=== PATIENT | male | born 1960 | race Caucasian/White ===

== ENCOUNTER 2017-10-10 10:37 | Outpatient (REF) | payer BC, SELFPAY ==
[2017-10-10 12:39] LABS: ALT 51 U/L (12-78); AST 26 U/L (15-37); Albumin 3.4 g/dL (3.4-5.0); Alkaline Phosphatase 77 U/L (46-116); Anion Gap 8.9 mmol/L (3-11); BUN 14 mg/dL (7-18); Bilirubin, Total 0.6 mg/dL (0.2-1.0); CO2 27.1 mmol/L (21.0-32.0); Calcium 8.8 mg/dL (8.5-10.1); Chloride 102 mmol/L (98-107); Glucose 116 mg/dL (70-100); Potassium 3.8 mmol/L (3.5-5.1); Sodium 138 mmol/L (136-145); Total Protein 7.3 g/dL (6.4-8.2)
[2017-10-10 12:48] LABS: Abs Immature Grans 0.04 k/cumm (0.0-0.09); Absolute Basophil Count 0.02 k/cumm (0.0-0.2); Absolute Eosinophil Count 0.09 k/cumm (0.0-0.7); Absolute Lymphocyte Count 0.87 k/cumm (1.2-3.4); Absolute Monocyte Count 0.48 k/cumm (0.11-0.7); Absolute Neutrophil Count 7.22 k/cumm (1.2-6.7); Basophils % 0.2; HCT 41.2 % (40.0-50.0); HGB 13.5 g/dL (13.5-17.5); Immature Grans % 0.5; Mean Corp. HGB Concentration 32.8 g/dL (32.0-36.0); Mean Corpuscular Hemoglobin 29.6 pg (27.0-33.0); Mean Corpuscular Volume 90.4 fL (80-95); Mean Platelet Volume 9.5 fL (8.0-11.0); Monocytes % 5.5; Neutrophils % 82.8; Platelet Count 321 x1000/uL (130-400); RBC 4.56 m/cumm (4.50-6.00); RBC Distribution Width 13.6 % (11.8-14.1); White Blood Cell Count 8.72 k/cumm (4.4-10.8)
[2017-10-11 10:40] LABS: PSA, Screening 1.3 ng/ml (0-3.5)
[2017-10-11 12:35] LABS: Lyme Ab w Rflx to Lyme Confirm Positive
[2017-10-11 21:46] LABS: Anaplasma phagocytophilum Negative (Negative); B. miyamotoi PCR Negative (Negative); Babesia divergens/MO-1 Negative (Negative); Babesia duncani Negative (Negative); Babesia microti Negative (Negative); Ehrlichia chaffeensis Negative (Negative); Ehrlichia ewingii/canis Negative (Negative); Ehrlichia muris eauclairensis Negative (Negative)
[2017-10-12 20:17] LABS: West Nile Virus Ab, IgM Negative (Negative)
[2017-10-13 15:23] LABS: IgG Band(s) SEE COMMENTS kDa; IgG Western Blot Positive (Negative); IgM Western Blot Positive (Negative); Western Blot Interpretation SEE COMMENTS
== END 2017-10-10 10:38 ==
LOC: NCHCN 10:37
PROVIDERS: PCP Internal Medicine; Visit Provider Internal Medicine
DX: Z00.00 Encounter for general adult medical examination without abnormal findings (principal); M25.50 Pain in unspecified joint; Z12.5 Encounter for screening for malignant neoplasm of prostate
CPT/HCPCS: 80053; 84153; 85025; 86617; 86618; 86788; 86789; 87798

== ENCOUNTER 2018-04-12 09:52 | Outpatient (REF) | payer BC, SELFPAY ==
[2018-04-12 12:24] LABS: Glucose 116 mg/dL (70-100)
== END 2018-04-12 10:12 ==
LOC: NCHCN 09:52
PROVIDERS: PCP Internal Medicine; Visit Provider Internal Medicine
DX: I10 Essential (primary) hypertension (principal); R73.01 Impaired fasting glucose; E66.9 Obesity, unspecified; Z00.00 Encounter for general adult medical examination without abnormal findings
CPT/HCPCS: 82947

== ENCOUNTER 2018-10-09 09:40 | Outpatient (REF) | payer BC, SELFPAY ==
[2018-10-09 13:29] LABS: HCT 42.6 % (40.0-50.0); HGB 14.4 g/dL (13.5-17.5); Mean Corp. HGB Concentration 33.8 g/dL (32.0-36.0); Mean Corpuscular Hemoglobin 30.7 pg (27.0-33.0); Mean Corpuscular Volume 90.8 fL (80-95); Mean Platelet Volume 10.6 fL (8.0-11.0); Platelet Count 242 x1000/uL (130-400); RBC 4.69 m/cumm (4.50-6.00); RBC Distribution Width 13.7 % (11.8-14.1); White Blood Cell Count 5.71 k/cumm (4.4-10.8)
[2018-10-09 14:23] LABS: Anion Gap 12.6 mmol/L (3-11); BUN 18 mg/dL (7-18); CO2 25.4 mmol/L (21.0-32.0); CREATININE 0.96 mg/dL (0.70-1.30); Chloride 106 mmol/L (98-107); Glucose 114 mg/dL (70-100); Potassium 3.8 mmol/L (3.5-5.1); Sodium 144 mmol/L (136-145); TSH 1.42 uIU/mL (0.36-3.74)
[2018-10-09 14:29] LABS: Hemoglobin A1C 5.9 % (4.5-6.2)
== END 2018-10-09 10:00 ==
LOC: NCHCN 09:40
PROVIDERS: PCP Internal Medicine; Visit Provider Internal Medicine
DX: I10 Essential (primary) hypertension (principal); R73.01 Impaired fasting glucose; R53.83 Other fatigue
CPT/HCPCS: 80048; 85027; 83036; 84443

== ENCOUNTER 2019-10-03 13:15 | Outpatient (REF) | payer BC, SELFPAY ==
[2019-10-03 21:11] LABS: Anion Gap 12.7 mmol/L (3-11); BUN 21 mg/dL (7-18); CO2 23.3 mmol/L (21.0-32.0); CREATININE 0.99 mg/dL (0.70-1.30); Calcium 9.1 mg/dL (8.5-10.1); Calculated LDL 155 mg/dL (<100); Chloride 106 mmol/L (98-107); Cholesterol 221 mg/dL (<200); Glucose 111 mg/dL (74-106); HDL Cholesterol 39 mg/dL (40-60); Potassium 3.9 mmol/L (3.5-5.1); Sodium 142 mmol/L (136-145); Triglyceride 135 mg/dL (<150)
[2019-10-03 21:13] LABS: Hemoglobin A1C 5.6 % (3.8-5.6)
== END 2019-10-03 13:35 ==
LOC: NCHCN 13:15
PROVIDERS: PCP Internal Medicine; Visit Provider Internal Medicine
DX: Z00.00 Encounter for general adult medical examination without abnormal findings (principal); R73.03 Prediabetes; I10 Essential (primary) hypertension
CPT/HCPCS: 80048; 80061; 83036

== ENCOUNTER 2020-10-05 15:40 | Outpatient (REF) | payer BC, SELFPAY ==
[2020-10-05 15:36] LABS: HCT 46.1 % (40.0-50.0); MCHC 32.5 % (32.0-36.0); MCV 92.2 fL (80-95); MPV 10.2 fL (8.0-11.0); Platelet Count 252 10^3/uL (130-400); RDW 12.8 % (11.8-14.1); RDW-SD 43.1 fL; WBC 6.62 10^3/uL (4.4-10.8)
[2020-10-05 15:53] LABS: ALT 54 U/L (16-63); AST 33 U/L (15-37); Albumin 4.4 g/dL (3.4-5.0); Alkaline Phosphatase 63 U/L (46-116); Anion Gap 10.5 mmol/L (3-11); BUN 25 mg/dL (7-18); Bilirubin, Total 0.7 mg/dL (0.2-1.0); CO2 27.5 mmol/L (21.0-32.0); CREATININE 1.2 mg/dL (0.70-1.30); Calcium 9.4 mg/dL (8.5-10.1); Calculated LDL 164 mg/dL (<100); Chloride 104 mmol/L (98-107); Cholesterol 239 mg/dL (<200); Glucose 106 mg/dL (74-106); HDL Cholesterol 40 mg/dL (40-60); Potassium 4.3 mmol/L (3.5-5.1); Sodium 142 mmol/L (136-145); Total Protein 7.7 g/dL (6.4-8.2); Triglyceride 177 mg/dL (<150)
== END 2020-10-05 15:41 | disposition home or self-care (01) ==
LOC: NCHCN 15:40
PROVIDERS: PCP Internal Medicine; Visit Provider Family Medicine
DX: I10 Essential (primary) hypertension (principal); E78.5 Hyperlipidemia, unspecified; R73.03 Prediabetes
CPT/HCPCS: 80053; 80061; 85027

== ENCOUNTER 2021-10-06 15:29 | Outpatient (REF) | payer BC, SELFPAY ==
[2021-10-06 17:07] LABS: Anion Gap 14.7 mmol/L (3-11); BUN 21 mg/dL (7-18); CO2 24.3 mmol/L (21.0-32.0); CREATININE 0.9 mg/dL (0.70-1.30); Calcium 8.8 mg/dL (8.5-10.1); Calculated LDL 160 mg/dL (<100); Chloride 104 mmol/L (98-107); Cholesterol 237 mg/dL (<200); Glucose 112 mg/dL (74-106); HDL Cholesterol 39 mg/dL (40-60); Sodium 143 mmol/L (136-145); Triglyceride 190 mg/dL (<150)
== END 2021-10-06 15:30 | disposition home or self-care (01) ==
LOC: NCHCN 15:29
PROVIDERS: PCP Internal Medicine; Visit Provider Family Medicine
DX: I10 Essential (primary) hypertension (principal); R73.03 Prediabetes; Z00.00 Encounter for general adult medical examination without abnormal findings; E66.9 Obesity, unspecified; E78.5 Hyperlipidemia, unspecified
CPT/HCPCS: 80048; 80061

== ENCOUNTER 2021-11-10 09:04 | Outpatient (REF) | payer BC, SELFPAY ==
[2021-11-10 16:58] LABS: ALT 60 U/L (16-63); AST 47 U/L (15-37); Albumin 4.1 g/dL (3.4-5.0); Alkaline Phosphatase 59 U/L (46-116); Anion Gap 8.4 mmol/L (3-11); BUN 16 mg/dL (7-18); Bilirubin, Total 0.6 mg/dL (0.2-1.0); CO2 28.6 mmol/L (21.0-32.0); CREATININE 1.1 mg/dL (0.70-1.30); Calcium 9.3 mg/dL (8.5-10.1); Chloride 105 mmol/L (98-107); Estimated GFR 76.37 (mL/min/1.73m2); Glucose 119 mg/dL (74-106); Sodium 142 mmol/L (136-145); Total Protein 7.9 g/dL (6.4-8.2)
== END 2021-11-10 09:05 | disposition home or self-care (01) ==
LOC: NCHCN 09:04
PROVIDERS: PCP Internal Medicine; Visit Provider Family Medicine
DX: I10 Essential (primary) hypertension (principal); R73.03 Prediabetes; E66.9 Obesity, unspecified
CPT/HCPCS: 80053

== ENCOUNTER 2022-10-19 16:14 | Outpatient (REF) | payer BC, SELFPAY ==
[2022-10-19 16:48] LABS: HCT 48.3 % (40.0-50.0); MCH 29.9 pg (27.0-33.0); MCHC 33.1 % (32.0-36.0); MCV 90 fL (80-95); MPV 10.4 fL (8.0-11.0); Platelet Count 272 10^3/uL (130-400); RBC 5.36 10^6/uL (4.36-5.78); RDW-SD 42.6 fL
[2022-10-19 17:18] LABS: ALT 55 U/L (16-63); AST 38 U/L (15-37); Albumin 4.1 g/dL (3.4-5.0); Alkaline Phosphatase 62 U/L (46-116); Anion Gap 11.8 mmol/L (3-11); BUN 21 mg/dL (7-18); Bilirubin, Total 0.8 mg/dL (0.2-1.0); CO2 24.2 mmol/L (21.0-32.0); CREATININE 1.1 mg/dL (0.70-1.30); Calcium 9.3 mg/dL (8.5-10.1); Calculated LDL 114 mg/dL (<100); Chloride 102 mmol/L (98-107); Cholesterol 194 mg/dL (<200); Glucose 117 mg/dL (74-106); HDL Cholesterol 43 mg/dL (40-60); Magnesium 2.1 mg/dL (1.8-2.4); Potassium 4.2 mmol/L (3.5-5.1); Sodium 138 mmol/L (136-145); Total Protein 7.3 g/dL (6.4-8.2); Triglyceride 189 mg/dL (<150)
== END 2022-10-19 16:15 | disposition home or self-care (01) ==
LOC: NCHCN 16:14
PROVIDERS: PCP Internal Medicine; Visit Provider Family Medicine
DX: Z00.00 Encounter for general adult medical examination without abnormal findings (principal); I10 Essential (primary) hypertension; E78.5 Hyperlipidemia, unspecified
CPT/HCPCS: 80053; 80061; 85027; 83735

== ENCOUNTER → 2022-12-08 02:19 | Outpatient (CLI) | payer BC, SELFPAY ==
--- NOTE | 2022-12-08 16:10 | DI.US_ITS ---
APPROVED REPORT EXAM: Comprehensive 2D, Doppler, and color-flow Echocardiogram Patient Location: Out-Patient Activities Concierge: Robert Fontana RDCS (AE) Indications: atrial fibrillation Other Information Technically limited study due to body habitus. Conclusion Normal left ventricular wall thickness and chamber size. Ejection fraction is 55 to 60%. Wall motio n is normal Normal right ventricular size and systolic function Both atria are normal in size Aortic valve is mildly sclerotic and trileaflet without stenosis or regurgitation There is no additional structural or hemodynamically significant valvular disease Estimated right ventricular systolic pressure is 34 mmHg Patient was in sinus rhythm throughout the study Wall motion Left Ventricle The left ventricle is normal size. The left ventricular systolic function is normal. The left ventric ular ejection fraction is within the normal range. There is normal left ventricular wall thickness. T here is normal LV segmental wall motion. Ventricular septum not well visualized in subcostal imaging due to body habitus. LVEF is 55-60%. Right Ventricle The right ventricle is normal size. Right ventricular systolic function is grossly normal. The RVSP i s 34.5 mmHg. Atria The left atrium size is normal. The right atrium size is normal. Atrial septum not well visualized in subcostal imaging due to body habitus. Aortic Valve The Aortic valve is mildly sclerotic. Aortic valve is trileaflet. There is no aortic valvular stenosi s. No aortic regurgitation is present. Mitral Valve The mitral valve is normal in structure. No evidence of mitral valve stenosis. There is no mitral kassidy ve regurgitation noted. Tricuspid Valve The tricuspid valve is normal in structure. There is no tricuspid valve stenosis. Mild tricuspid regu rgitation. Pulmonic Valve The pulmonary valve is normal in structure. There is no pulmonic valvular stenosis. Trace pulmonic re gurgitation. Great Vessels The aortic root is normal in size. The ascending aorta is normal in size. Aortic arch is normal in ca liber. IVC is normal in size and collapses >50% with inspiration. Pericardium There is no pericardial effusion. 2D Dimensions IVSD d PLAX 0.70 cm M: 0.6-1.2 Ao Root d 3.60 cm M: 3.1 - 3.7 LVPW d PLAX 0.74 cm M: 0.6 - 1.2 Ao Asc Diam d 3.22 cm M: 2.6 - 3.4 LVID d PLAX 5.37 cm M: 4.2 - 5.8 LVDs 3.73 cm M: 2.5 - 4.0 LV EF Teichholz 57.4 % FS 30.47 % LV EDV (Teich) 139.5 mL LV ESV (Teich) 59.4 mL Stroke Vol Index (Teich) 34.08 M-Mode TAPSE 2.29 cm (M/F) >1.7 Auto EF LV EDV A4C 126.3 mL LV EDV A2C 113.4 mL LV EDV BP 119.5 mL LV ESV A4C 51.4 mL LV ESV A2C 51.0 mL LV ESV BP 51.9 mL LVEF(%) A4C 59.3 % LVEF(%) A2C 55.0 % LVEF(%) BP 56.6 % LV SV A4C 74.9 ml LV SV A2C 62.4 ml LV SV BP 67.6 ml LV CO A4C 6.5 L/min LV CO A2C 5.0 L/min LV CO BP 5.8 L/min HR A4C 86.96 BPM HR A2C 80.36 BPM LV EDV Index (BP) LA Volume LA Length A4C 6.5 cm LA Length A2C LA Area A4C s 13.07 cm2 LA Area A2C s LA Vol A4C A-L 22.36 mL LA Vol A2C A-L LA Vol Biplane A-L LA Vol A4C MOD 22.6 mL LA Vol A2C MOD LA Vol BP MOD RA Volume RA Area A4C 9.6 cm2 RA ESV A4C (A-L) 15.9mL RA Vol/BSA A4C A-L RA Length A4C 5.0 cm RA ESV A4C (MOD) 15.6mL LV Diastology MV E' medial 0.103 (>0.07 m/s) MV E Vmax 0.85 (0.4-1.3 m/s) MV E/E' MED 8.25 (<14) MV A Vmax 0.90 (0.4-1.3 m/s) MV E' lateral 0.109 (>0.1 m/s) E/A Ratio 0.9 MV E/E' LAT 7.74 (<14) MV E' Average 0.106 m/s MV E/E'(average) 7.99 Aortic Valve AoV Vmax 1.31 m/s LVOT Diam s 2.10 cm AoV Peak Grad 6.9 mmHg AoV VTI 0.285 m AoV Mean Vipin. 1.00 m/s AoV Mean Grad 4.2 mmHg Mitral Valve MV DT 240 (160-240 msec) Pulmonary Valve RVOT Vmax 0.80 m/s RVOT Peak Gr. 2.6 mmHg RVOT VTI 0.170 m RVOT Mean Gr. 1.4 mmHg Tricuspid Valve RA Pressure 3.00 mmHg TR Vmax 2.81 m/s TR Peak Grad 31.4 mmHg RVSP (TR) 34.5 mmHg
== END ==
PROVIDERS: PCP Internal Medicine; Visit Provider Family Medicine
DX: I48.0 Paroxysmal atrial fibrillation (principal)
CPT/HCPCS: 93306

== ENCOUNTER 2023-11-15 15:16 | Outpatient (REF) | payer BC, SELFPAY ==
--- OUTSIDE RECORDS SUMMARY | 2023-11-15 15:18 | XMS_ITS | Referral Summary ---
Author Organization [facility] Address [address] [place] [address] Care Team Providers Care Ui Ux Engineer Name Role Phone Wilian Desir MD Primary Care Provider [phone] Social History Tobacco Use Types Packs/Day Years Used Date Smoking Tobacco: Never Assessed Sex and Gender Information Value Date Recorded Sex Assigned at Not on file Gender Identity Not on file Sexual Orientation Not on file Plan of Treatment Not on file Care Teams Ui Ux Engineer Relationship Specialty Start Date End Date Wilian Desir MD [address] [place] [id number] PCP - General 12/29/09
--- OUTSIDE RECORDS SUMMARY | 2023-11-15 15:18 | XMS_ITS | Encounter Summary ---
Author Organization [facility] Address [facility] [place] [address] Care Team Providers Care Bagging Machine Operator Name Role Phone Wilian Desir MD Primary Care Provider Reason for Visit * Reason Comments Left Knee Pain Encounter Details Date Type Department Care Team (Latest Contact Info) Description 04/27/2011 9:10 AM EDT Office [place] [address] Diego Haddad MD [facility] [place] [address] Osteoarthritis of knee; Degenerative tear of medial meniscus; Medial meniscus tear Discharge Disposition: Home Social History Tobacco Use Types Packs/Day Years Used Date Smoking Tobacco: Never Smokeless Tobacco: Never Alcohol Use Standard Drinks/Week Comments Yes 0 (1 standard drink = 0.6 oz pur e alcohol) socially Sex and Gender Information Value Date Recorded Sex Assigned at Not on file Gender Identity Not on file Sexual Orientation Not on file documented as of this encounter Last Filed Vital Signs Vital Sign Reading Time Taken Comments Blood Pressure 157/96 04/27/2011 9:27 AM EDT Pulse 71 04/27/2011 9:27 AM EDT Temperature - - Respiratory Rate - - Oxygen Saturation - - Inhaled Oxygen Concentration - - Weight 130.3 kg (287 lb 3.2 oz) 04/27/2011 9:27 AM EDT Height 179.1 cm (5' 10.5) 04/27/2011 9:27 AM ED T pt stated Body Mass Index 40.63 04/27/2011 9:27 AM EDT documented in this encounter Patient Instructions * Patient Instructions* Estuardo, Sloane Orozco, FIELD ARTILLERY CANNONEER - 04/27/2011 9:27 AM EDT Welcome to [employer], your secure online access to your electronic medical record at [facility]. Using [employer] you will be able to send messages to your providers, view your test results, renew prescriptions, schedule appointments, and much more. Follow these instructions to enter your personal [employer] account for the first time: 1. Start your internet browser and type [email or web address] into the address bar. 2. In the New User box on the right-hand side of the Welcome page click the link that states, ???I have an activation code.?? 3. On the Identification page, follow these steps: a) Enter your [employer] activation code: [email or web address] b) Expires: 06/11/11 09:27 AM IMPORTANT: This Activation Code will on the above mentioned date. If you do not sign up for [employer] by this date, you will need to request another activation code. c) Enter your date of , using the calendar tool provided. d) Enter your Zip code. e) Select ???submit?? to go to the next page. 4. On the Create Account page, follow these steps: a) Create a [employer] username. This can???t be changed, so choose one you won???t forget. b) Create a password that???s at least six characters long, and that contains at least two numbers.Your password can be changed at any time. Confirm your password by entering it once more. c) Enter your email address. This will be used to alert you to new information. Confirm your email address by entering it once more. d) Enter your security question. This will be used if you forget your password. e) Enter your security answer. Confirm your security answer by entering it once more. f) Select ???submit?? to view your electronic medical record. If you have any questions about [employer] or your Access Code, please call for [place], for [place] or for [place]. If you need technical support, please e-mail [email or web address]. Remember, [employer] is NOT for urgent needs! Always dial 911 for medical emergencies. documented in this encounter Progress Notes * Diego Haddad MD - 04/27/2011 10:32 AM EDTAddended by: DIEGO HADDAD on: 04/27/2011 Modules accepted: Orders, SmartSet * Maura Sun PA - 04/27/2011 10:15 AM EDT PATIENT NAME: Boone Gonzalez AGE: 50 y.o. MR#: [id number] DATE OF VISIT: 04/27/2011 DATE OF INJURY/ONSET: 4 years STAFF: Dr. Haddad CHIEF COMPLAINT: Left knee pain HISTORY OF PRESENT ILLNESS Mr. Lisa orozco 50 y.o. year old male comes into clinic today for left knee pain. Patient last saw buster Mitchell about 6 weeks ago. He continues with similar symptoms of intermittent left medial knee pain. He has a hard time defining the exact positions that cause him difficulty, but he is limited. He has tried PT for 6 weeks without any change in knee pain, however he doesfeel his knee/leg is stronger. He does continue with some catching of the left knee PMH: borderline htn Denies Smoking Rare etoh Works selling insurance PHYSICAL EXAM: Mr. Lisa orozco 50 y.o. year old is alert and oriented. He appears in no acute discomfort and is resting comfortably in a chair in the exam room. Cardiac: Regular Rate and rhythm. No murmur apprectiated. Lungs: Lungs CTA bilateral without rales and ronchi. Left knee Inspection: small effusion. no ecchymosis. Palpation: Medial left knee tenderness. ROM Forward Flexion: 120 Extension: full Strength: 5/5 Orthopedic testing: neg MCL laxity. neg LCL laxity. neg Anterior Drawer. neg Posterior Drawer. neg Niranjan. positive [facility] 2+ DP pulse. 2+ PT pulse. Sensation intact. I have made the following determinations: Knee Exam: Left Prior surgery on this joint: No Gait Abnormality: Normal Knee ROM: Extension:0 Flexion: 110 Alignment: 0-4 degrees Neutral Stability: A/P Translation <5mm Varus (lateral stability) <5mm Valgus (medial stability) <5mm Extension La degrees or less Radiographic evidence of joint damage: [0= normal; 1=minimal ; 2= some osteophytes , some narrowing ; 3= moderate osteophytes, significantnarrowing, mild deformity; 4= large osteophytes, marked narrowing, obvious deformity]: 2= some osteophytes, some narrowing Patella Tracking: Normal Skin Integrity: Normal Pulses Palpable: Left PT:Yes Left DP:Yes Motor/Sensory: Left Distal Motor:Normal Distal Sensory: Normal Quadriceps Strength:5 ASSESSMENT: Left knee internal derangement. PLAN: Patient seen with Dr. Haddad. Mr. Gonzalez and I discussed his radiologic findings and physical exam findings. The pertinent positives were mechanical symptoms and medial pain. Based on findingsand discussion patient would like to move forward with arthroscopy. The patient understands to contact us if they have any other questions or concerns. * Diego Haddad MD - 04/27/2011 10:13 AM EDT I saw this patient in conjunction with HERIBERTO Chisholm today. Please see her note for details of the history and physical examination. I am in agreement with the plan as stated. Boone Gonzalez is a 50 y.o. year old male with left knee pain. He has a history, clinical exam, and radiologic findings consistent with mild OA and medial meniscal tear. The patient is having pain as well as mechanical symptoms, but seems to be more bothered by the mechanical symptoms. We had a discussion of the treatment options including activity modification, weight reduction, PT, NSAIDS, corticosteroid injection, as well as knee arthroscopy. The patient feels that they have exhausted non-operative treatment measures at this point including NSAIDS and PT. He would like to avoid MRI and proceed to arthroscopy. I explained that addressing the meniscal pathology would likely improve the mechanical symptoms, but would not necessarily improve the arthritis pain. There is certainly a possibility that he would have some persistent discomfort after knee arthroscopy. The patient understands this and would like to proceed. We discussed the risks of surgery including bleeding, infection, need for further surgery, fracture, damage to nerves or blood vessels, blood clots, persistent pain, and cardiopulmonary complicationsup to and including . All questions were answered. He is a healthy and active gentleman with no significant PMH, so we will proceed without further PAT. I explained that the procedure would be done as a same-day surgery and he would be allowed to weight bear as tolerated. Crutches would likely be needed for the first few days and we would plan for early knee ROM. I advised him to plan for being out of work for at least 2 weeks and that it may take up to 3 months to recover fully. We would like him to take Aspirin 325 mg daily for 1 month for DVT prophylaxis. documented in this encounter Miscellaneous Notes * Miscellaneous - Vicente, Steel Plate Printer - 05/05/2011 2:54 PM EDT documented in this encounter Plan of Treatment Not on file documented as of this encounter Procedures Procedure Name Priority Date/Time Associated Diagnosis Comments ARTHROSCOPY KNEE, MENISCECTOMY SINGLE W/ SHAVING Routine 04/27/2011 10:32 AM EDT Degenerative tear of medial meniscus documented in this encounter Visit Diagnoses Diagnosis Osteoarthritis of knee Osteoarthrosis, unspecified whether generalized or localized, lower leg Degenerative tear of medial meniscus Tear of medial cartilage or meniscus of knee, current Medial meniscus tear Tear of medial cartilage or meniscus of knee, current documented in this encounter Care Teams Bagging Machine Operator Relationship Specialty Start Date End Date Wilian Desir MD [address] [place] [address] PCP - General 02/21/11 documented as of this encounter
--- OUTSIDE RECORDS SUMMARY | 2023-11-15 15:18 | XMS_ITS | Encounter Summary ---
[facility] [place] [address] Care Team Providers Care Chief Diversity Officer Name Role Phone Wilian Desir MD Primary Care Provider Encounter Details Date Type Department Care Team (Latest Contact Info) Description 05/04/2011 6:45 AM EDT - 05/04/2011 11:15 AM EDT Hospital Encounter [place] [address] Diego Stearns MD [facility] [place] [address] Degenerative tear of medial meniscus Discharge Disposition: Home Social History Tobacco Use [...] Sign Reading Time Taken Comments Blood Pressure 157/100 05/04/2011 10:46 AM EDT Pulse 73 05/04/2011 10:46 AM EDT Temperature 36.2 ??C (97.2 ??F) 05/04/2011 9:41 AM ED T Respiratory Rate 18 05/04/2011 10:46 AM EDT Oxygen Saturation 93% 05/04/2011 10:46 AM EDT Inhaled Oxygen Concentration - - Weight - - Height - - Body Mass Index - - documented in this encounter Discharge Instructions * Discharge Instructions* Liss Tesfaye RN - 05/04/2011 10:03 AM EDT 1. You may have received medication before and/or during your procedure, which affects judgment andreaction time. 2. Do not drive, operate machinery, drink alchololic beverages, or make important decisions for 24 hours. 3. Be careful on stairs, as you may be unsteady on your feet. 4. You may eat a regular diet as tolerated. 5. Do not smoke if you are alone. 6. IV site- slight redness or tenderness is normal, you can use warm compresses. If tenderness and redness increases or foul drainage occours, please contact your M.D. 1. You may have received medication before and/or during your procedure, which affects judgment and reaction time. * Patient Instructions* Josue Rocha MD - 05/04/2011 9:41 AM EDT ORTHOPAEDIC SURGERY DISCHARGE INSTRUCTIONS Activity: Weight bear with crutches as needed. Keep the affected extremity elevated and use ice as needed. Driving: No driving while you are on narcotic pain medication. No driving until you are instructed by your orthopedic physician. Call the office if you have questions. Medications: Vicodin 1-2 tabs every 6 hours as needed for pain Aspirin 325mg orally once daily for 4 weeks Resume your home medication Dressing: Keep the compression wrap in place for 72 hours then remove with the white surgical dressing. Replace with waterproof bandaids. Keep the incision clean and dry until you are seen in follow-up. DO NOT submerge the wound until sutures removed and you are allowed to do so by your Orthopaedic Surgeon. CALL YOUR SURGEON IF YOU HAVE: Fevers greater than 101.5* Fahrenheit Chills or night sweats Nausea or vomiting Wound redness or discharge Numbness or tingling Increased pain Calf pain or swelling Any questions or concerns Follow up: [facility]: MonMay 17 at 10:30a Contact Information: Your orthopaedic surgeon: Diego Stearns MD: [phone] If it is after 5:00PM on a weekday or a weekend and it is of an urgent nature please call [phone] and ask for the on-call orthopaedic resident. documented in this encounter Medications at Time of Discharge Medication Sig Dispensed Refills Start Date End Date GLUC SMITH/CHONDRO SMITH A/VIT C/MN (GLUCOSAMINE CHONDROITIN MAXSTR ORAL) Take by mouth. hydroCODone-acetaminophe n (VICODIN) 5-500 mg per tablet Take 1-2 tablets by mouth every 6 hours as needed for Pain. 40 tablet 0 05/04/2011 05/18/2011 documented as of this encounter Progress Notes * Liss Tesfaye RN - 05/04/2011 10:09 AM EDT Patient arrived from OR, alert, dressing dry and intact. called to bedside and RX given to her. Patient medicated for pain with IV medication and oral medication after taking jello. Seen by MD at bedside. PAin level is decreasing. Patient up on crutches to bathroom to void, getting dressed now. Discharge instructions reviewed with patient and his who verbalized a good understanding of same. documented in this encounter H&P Notes * Diego Stearns MD - 05/04/2011 5:42 AM EDT The patient's history and physical exam have been reviewed and completed. There has been no interval change from that of the pre-operative history and physical exam done within the last 30 days. * Diego Stearns MD - 05/04/2011 5:41 AM EDT Patient Name: Boone Gonzalez Patient Age: 50 y.o. Birthdate: 1960 Admit date: (Not on file) Attending Physician: Diego Stearns MD Please see office note by HERIBERTO Chisholm for H&P. documented in this encounter Miscellaneous Notes * Miscellaneous - Provider, Scanning - 05/05/2011 6:08 AM EDT * Op Note - Digeo Stearns MD - 05/04/2011 9:22 AM EDT [facility] Operative Note Patient Name: Boone Gonzalez : [id number] MR#: [id number] Case Date: 05/04/2011 Surgeon: Surgeon(s) and Role: * DIEGO STEARNS MD - Primary * JOSUE ROCHA MD - Resident-Surgeon Chief * JUAN VALENCIA MD PROCEDURES: 1. left knee diagnostic arthroscopy. 2. Arthroscopic partial medial meniscectomy. PREOPERATIVE DIAGNOSIS: medial meniscal tear with mechanical symptoms. POSTOPERATIVE DIAGNOSIS: medial meniscal tear with mechanical symptoms. ANESTHESIA: General endotracheal and local. ESTIMATED BLOOD LOSS: 20 cc. TOURNIQUET TIME: 38 minutes at 250 mm Hg. COMPLICATIONS: none. FINDINGS: 1. Beak type medial meniscal tear at the junction of the mid body and posterior horn. 2. 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 3. Grade 2 chondromalacia changes in the medial compartment. 4. Grade 1 chondromalacia changes in the lateral compartment. 5. Intact anterior cruciate ligament. 6. Suprapatellar pouch, medial and lateral gutters were examined with no evidence of loose bodies. INDICATIONS: The patient presented to the orthopedic clinic with severe knee pain. The physical exam and imaging findings consistent with a meniscal tear. We had a discussion regarding the risks and benefits of the different treatment options including activity modification, physical therapy, anti-inflammatory medications, corticosteroid injection, and arthroscopic surgery. The patient elected toproceed with arthroscopy. We discussed the risks of surgery including bleeding, infection, damage to nerves or blood vessels, failure to relieve pain, recurrent meniscal tear, fracture, cardiopulmonary complications associated with anesthesia, and . All questions were answered. Informed consent was signed in the clinic during the pre-op visit and I personally marked the surgical site with a green [place] in the pre-op area. DESCRIPTION OF OPERATIVE PROCEDURE: After careful identification of the patient in the holding areaand confirmation of the procedure, the patient was transferred to the operating room. General endotracheal anesthesia was administered by the anesthesiology staff. Antibiotic prophylaxis was given and a tourniquet was placed on the upper thigh. A lateral post was then placed. The operative extremity was then prepped and draped in the usual sterile fashion. A time-out for the stated surgery was undertaken and all agreed to proceed with knee arthroscopy. The limb was exsanguinated and tourniquet inflated. A lateral parapatellar arthroscopy portal was marked out using bony landmarks. A 1 cm incision was then made and the joint was entered bluntly using a trocar. The knee was insufflated with fluid and a diagnostic arthroscopy undertaken. The findings were as listed above. We then marked out a medial parapatellar portal with the use of spinal needle after insufflation with Marcaine. A #15 blade was then used under direct visualization with the arthroscope to create this portal. The probe was introduced and the medial meniscus examined. We then used a combination of arthroscopic biter and shaver to debride the meniscus back to a stable edge. We then carefully probed the rest of the meniscus. We then returned to the lateral compartment and probed the meniscus there as well. The ACL was also examined with the probe. After completion of the therapeutic portion of the case, the knee was thoroughly irrigated with arthroscopic fluid. It was then sucked dry and the arthroscope removed. The wounds were then closed using 4-0 Prolene in a simpleinterrupted manner. The arthroscopy portals were injected with 0.25% marcaine. The wounds were cleansed, dried, and a dressing consistent of Xeroform followed by dry gauze and ABDs was applied. This was then over wrapped with an Ralf bandage. The tourniquet was then deflated, and the patient awakened by the anesthesiology staff. The patient was transferred to [facility] in good condition. There appeared to be no intraoperative complications. The patient had palpable dorsalis pedis pulse after the case. POSTOPERATIVE PLAN: Admission to the same-day surgery unit for recovery. The patient will be discharged with appropriate pain medications and asked to take daily aspirin for one month for DVT prophylaxis. Crutches as needed for comfort. Weightbearing as tolerated. Return to clinic in two weeks for suture removal. * OR Attestation - Diego Stearns MD - 05/04/2011 9:22 AM EDT Attestation: Case Date: 05/04/2011 I was present and I participated during the entire procedure (does not need to include opening and closing). DIEGO STEARNS MD 05/04/2011 * Brief Op Note - Diego Stearns MD - 05/04/2011 9:22 AM EDT Brief Operative Note Patient Name: Boone Gonzalez : [id number] MR#: [id number] Case Date: 05/04/2011 Surgeon: Surgeon(s) and Role: * DIEGO STEARNS MD - Primary * JOSUE ROCHA MD - Resident-Surgeon Chief * JUAN VALENCIA MD Preoperative diagnosis: mensical tear Postoperative diagnosis: mensical tear Procedure(s): ARTHROSCOPY KNEE, MENISCECTOMY SINGLE W/ SHAVING Anesthesia: General Estimated Blood Loss: 20 mL Drains: none Disposition: awakened from anesthesia, extubated and taken to the recovery room in a stable condition, having suffered no apparent untoward event. Condition: doing well without problems * Miscellaneous - Provider, Scanning - 05/04/2011 7:36 AM EDT documented in this encounter Plan of Treatment Not on file documented as of this encounter Procedures Procedure Name Priority Date/Time Associated Diagnosis Comments ARTHROSCOPY KNEE, MENISCECTOMY SINGLE W/ SHAVING (WRVU 7.03) 05/04/2011 8:16 AM EDT Degenerative tear of medial meniscus documented in this encounter Visit Diagnoses Diagnosis Degenerative tear of medial meniscus Tear of medial cartilage or meniscus of knee, current documented in this encounter Administered Medications Inactive Administered Medications - up to 3 most recent administrations Medication Order MAR Action Action Date Dose Rate Site ceFAZolin (ANCEF) 2g in dextrose 5% 100mL 2 g, Intravenous, ONCE, 1 dose, On Mon05/04/11 at 0800, Administer over 30 Minutes, To be administered upon arrival to the OR within one hour prior to incision., Day of Surgery (Day of Procedure) Given 05/04/2011 8:23 AM EDT 2 g HYDROmorphone (DILAUDID) injection 0.2-0.4 mg 0.2-0.4 mg, Intravenous, EVERY 5 MIN PRN, Starting on Mon05/04/11 at 0945, Until Mon05/04/11 at 1332, Pain, For moderate pain give: 0.2 mg every 5 minute prn For severe pain give: 0.4 mg every 5 minutes prn Maximum dose: 4 mg per hour Hold for respiratory rate less than 10 per minute., PACU Recovery, Routine Given 05/04/2011 9:56 AM EDT 0.4 mg Given 05/04/2011 9:51 AM EDT 0.4 mg OXYcodone (ROXICODONE) immediate release tablet 10 mg 10 mg, Oral, EVERY 4 HOURS PRN, Starting on Mon05/04/11 at 0945, Until Mon05/04/11 at 1332, Pain, moderate pain, Moderate pain, PACU Recovery, Routine Given 05/04/2011 10:00 AM EDT 10 mg documented in this encounter Active and Recently Administered Medications Times are shown in EDT. Scheduled Medication Order 05/02/2011 05/03/2011 05/04/2011 ceFAZolin (ANCEF) 2g in dextrose 5% 100mL (COMPLETED) 2 g, Intravenous, ONCE, 1 dose, On Mon05/04/11 at 0800, Administer over 30 Minutes, To be administered upon arrival to the OR within one hour prior to incision., Day of Surgery (Day of Procedure) 0823 (Given - Provid er: Андрей Antunez) PRN Medication Order 05/02/2011 05/03/2011 05/04/2011 HYDROmorphone (DILAUDID) injection 0.2-0.4 mg (CANCELED) 0.2-0.4 mg, Intravenous, EVERY 5 MIN PRN, Starting on Mon05/04/11 at 0945, Until Mon05/04/11 at 1332, Pain, For moderate pain give: 0.2 mg every 5 minute prn For severe pain give: 0.4 mg every 5 minutes prn Maximum dose: 4 mg per hour Hold for respiratory rate less than 10 per minute., PACU Recovery, Routine 0951 (Given - Provid er: Liss Tesfaye RN)0956 (Given - Provider: Liss Tesfaye RN) OXYcodone (ROXICODONE) immediate release tablet 10 mg (CANCELED)(Linked Group 1) 10 mg, Oral, EVERY 4 HOURS PRN, Starting on Mon05/04/11 at 0945, Until Mon05/04/11 at 1332, Pain, moderate pain, Moderate pain, PACU Recovery, Routine 1000 (Given - Provid er: Liss Tesfaye RN) ROpivacaine (NAROPIN) 2 mg/mL (0.2 %) injection (CANCELED) ONCE PRN, Starting on Mon05/04/11 at 0930, Until Mon05/04/11 at 1332, Intra-Operative (Intra-Procedure), Routine 0930 (Given - Provid er: Juan Valencia - Comment: Injection) Linked Groups Order Group 1: OXYcodone (ROXICODONE) immediate release tablet 5 mg (CANCELED) 5 mg, Oral, EVERY 4 HOURS PRN, Starting on Mon05/04/11 at 0945, Until Mon05/04/11 at 1332, Pain, mild pain, PACU Recovery, Routine Or OXYcodone (ROXICODONE) immediate release tablet 10 mg (CANCELED)Jump to med 10 mg, Oral, EVERY 4 HOURS PRN, Starting on Mon05/04/11 at 0945, Until Mon05/04/11 at 1332, Pain, moderate pain, Moderate pain, PACU Recovery, Routine Or OXYcodone (ROXICODONE) immediate release tablet 15 mg (CANCELED) 15 mg, Oral, EVERY 4 HOURS PRN, Starting on Mon05/04/11 at 0945, Until Mon05/04/11 at 1332, Pain, severe pain, Severe pain, PACU Recovery, Routine documented in this encounter Care Teams Chief Diversity Officer Relationship Specialty Start Date End Date Wilian Desir MD [address] [place] [address] PCP - General 02/21/11 documented as of this encounter
--- OUTSIDE RECORDS SUMMARY | 2023-11-15 15:18 | XMS_ITS | Encounter Summary ---
Author Organization [facility] [place] [address] Care Team Providers Care Rubber Goods Inspector Name Role Phone Wilian Desir MD Primary Care Provider [phone] Encounter Details Date Type Department Care Team (Late st Contact Info) Description 03/16/2011 9:08 AM EST - 03/16/2011 11:59 PM EST Hospital Encounter XRay at [address] [place] [address] Left knee pain Social History Tobacco Use Types Packs/Day Years Used Date Smoking Tobacco: Never Smokeless Tobacco: Never Alcohol Use Standard Drinks/Week Comments Yes 0 (1 standard drink = 0.6 oz pur e alcohol) socially Sex and Gender Information Value Date Recorded Sex Assigned at Not on file Gender Identity Not on file Sexual Orientation Not on file documented as of this encounter Medications at Time of Discharge Medication Sig Dispensed Refills Start Date End Date GLUC SMITH/CHONDRO SMITH A/VIT C/MN (GLUCOSAMINE CHONDROITIN MAXSTR ORAL) Take by mouth. documented as of this encounter Plan of Treatment Not on file documented as of this encounter Procedures Procedure Name Priority Date/Time Associated Diagnosis Comments XR JOINT TEAM ALIGNMENT AP LAT SCHUSS SKYLINE Routine 03/16/2011 9:48 AM EST Left knee pain documented in this encounter Results * XR JOINT TEAM ALIGNMENT AP LAT SCHUSS SKYLINE (03/16/2011 9:48 AM EST) Anatomical Region Laterality Modality N/A Radiographic Natalie ging 03/16/2011 9:48 AM EST Impressions 03/17/2011 9:47 AM EST IMPRESSION: 1. Osteoarthritis of the right knee with mild right medial joint space narrowing. Narrative 03/17/2011 9:47 AM EST EXAMINATION: STANDING ALIGNMENT. DATE OF EXAM: 03/16/11. HISTORY: Left knee pain, limited range of motion. FINDINGS: The bilateral weightbearing axes are medially shifted. ?? Osteoarthritis of the right knee characterized by slightly narrowed medial joint space and bilateral small osteophyte formation. No large left knee effusion. There are irregular enthesophytes at quadriceps and patellar tendons insertion. Procedure Note Kristi Chaudhari MD - 03/17/2011 EXAMINATION: STANDING ALIGNMENT. DATE OF EXAM: 03/16/11. HISTORY: Left knee pain, limited range of motion. FINDINGS: The bilateral weightbearing axes are medially shifted. Osteoarthritis of the right knee characterized by slightly narrowed medial joint space and bilateral small osteophyte formation. No large left knee effusion. There are irregular enthesophytes at quadriceps and patellartendons insertion. IMPRESSION IMPRESSION: 1. Osteoarthritis of the right knee with mild right medial joint spacenarrowing. Diego Stearns MD IMG DX ORDERABLES documented in this encounter Visit Diagnoses Diagnosis Left knee pain Pain in joint, lower leg documented in this encounter Care Teams Rubber Goods Inspector Relationship Specialty Start Date End Date Wilian Desir MD [address] [place] [address] PCP - General 02/21/11 documented as of this encounter
--- OUTSIDE RECORDS SUMMARY | 2023-11-15 15:18 | XMS_ITS | Encounter Summary ---
Author Organization [facility] [place] [address] Care Team Providers Care Orthopaedic Technologist Name Role Phone Wilian Desir MD Primary Care Provider Encounter Details Date Type Department Care Team (Late st Contact Info) Description 05/04/2011 8:20 AM EDT Anesthesia Event [place] [address] Boone Reid MD [facility] [place] [address] Robinson Shannon MD [facility] [place] [address] Anesthesia Record Procedure Summary Procedure Name Responsible Anesthesiologist Anesthesia Start Time Anesthesia Stop Time ARTHROSCOPY KNEE, MENISCECTOMY SINGLE W/ SHAVING (WRVU 7.03) (Left: Knee) Boone Reid MD 05/04/11 0820 05/04/11 0939 Events Date Time Event Comment 05/04/2011 0624 0820 Start 0939 Stop Meds * Agents No agents on file. * Blood No blood administrations on file. Lines, Drains, and Airways Type Details Placement Removal Incision 05/04/11; knee; 10/11/21 (LDA cleanup utility RA#[id number]); 1715 (LDA cleanup utility RA#[id number]) 05/04/11 0000 by Viola Giron RN 10/11/21 1715 by Soto Veras (RETIRED) Peripheral IV Line - Single Lumen 05/04/11; 0814; 05/04/11; 1110 05/04/11 0814 by Lilliana Hull RN 05/04/11 1110 by Liss Tesfaye RN documented in this encounter Social History Tobacco Use Types Packs/Day Years Used Date Smoking Tobacco: Never Smokeless Tobacco: Never Alcohol Use Standard Drinks/Week Comments Yes 0 (1 standard drink = 0.6 oz pur e alcohol) socially Sex and Gender Information Value Date Recorded Sex Assigned at Not on file Gender Identity Not on file Sexual Orientation Not on file documented as of this encounter OR Notes * Anesthesia Preprocedure Evaluation - Boone Reid MD - 05/04/2011 6:23 AM EDT Anesthesia Evaluation Patient summary reviewed and Nursing notes reviewed Airway Mallampati: I TM distance: >3 FB Neck ROM: full Dental Pulmonary - negative ROS and normal exam Cardiovascular - normal exam (+) hypertension, Neuro/Psych GI/Hepatic/Renal - negative ROS Endo/Other Abdominal Anesthesia Plan ASA 2 General with intravenous induction Anesthetic plan and risks discussed with patient. * Anesthesia Postprocedure Evaluation - Boone Reid MD - 05/04/2011 12:00 AM EDT Patient: Boone Gonzalez Procedure(s) Performed: ARTHROSCOPY KNEE, MENISCECTOMY SINGLE W/ SHAVING - Additional CPT Codes: Estimated case duration: 1 hour Return visit for consent: no Does patient need to go to [facility] for testing?: no H&P w/PCP: no, Add'l Preop Consults (Add Order in eDH): Add'l Preop Imaging (Add Order in eDH): Position: Supine Post-op: F/u two weeks, no films Patient location: PACU Post-op pain: Adequate analgesia Post-op nausea: no nausea or vomiting Last Vitals: Filed Vitals: 05/04/11 1046 BP: 157/100 Pulse: 73 Temp: Resp: 18 Post-op cardiovascular and respiratory status: is stable Level of consciousness: awake Complications: no apparent complications Fluid Status: normal documented in this encounter Plan of Treatment Not on file documented as of this encounter Visit Diagnoses Not on filedocumented in this encounter Care Teams Orthopaedic Technologist Relationship Specialty Start Date End Date Wilian Desir MD [address] [place] [address] PCP - General 02/21/11 documented as of this encounter
--- OUTSIDE RECORDS SUMMARY | 2023-11-15 15:18 | XMS_ITS | Encounter Summary ---
Author Organization [facility] [place] [address] Care Team Providers Care Field Operator Name Role Phone Wilian Desir MD Primary Care Provider [phone] Encounter Details Date Type Department Care Team (Late st Contact Info) Description 03/12/2011 Orders [place] [address] Diego Stearns MD [facility] [place] [address] Social History Tobacco Use Types Packs/Day Years Used Date Smoking Tobacco: Never Assessed Sex and Gender Information Value Date Recorded Sex Assigned at Not on file Gender Identity Not on file Sexual Orientation Not on file documented as of this encounter Plan of Treatment Not on file documented as of this encounter Visit Diagnoses Not on filedocumented in this encounter Care Teams Field Operator Relationship Specialty Start Date End Date Wilian Desir MD [address] [place] [address] PCP - General 02/21/11 documented as of this encounter
--- OUTSIDE RECORDS SUMMARY | 2023-11-15 15:18 | XMS_ITS | Encounter Summary ---
Author Organization [facility] Address [facility] [place] [address] Care Team Providers Care Clinic Licensed Practical Nurse Name Role Phone Wilian Desir MD Primary Care Provider Reason for Visit * Reason Comments Follow Up Surgery SP L KNEE SCOPE DOS 05/04/11 Encounter Details Date Type Department Care Team (Late st Contact Info) Description 05/18/2011 10:30 AM EDT Office [place] [address] Diego Haddad MD [facility] [address] [place] [address] Medial meniscus tear (Primary Dx) Discharge Disposition: Home Social History Tobacco Use [...] Sign Reading Time Taken Comments Blood Pressure 154/92 05/18/2011 10:33 AM EDT Pulse 77 05/18/2011 10:33 AM EDT Temperature 36.8 ??C (98.2 ??F) 05/18/2011 10:33 AM E DT Respiratory Rate - - Oxygen Saturation - - Inhaled Oxygen Concentration - - Weight 131.1 kg (289 lb) 05/18/2011 10:33 AM EDT Height 177.8 cm (5' 10) 05/18/2011 10:33 AM EDT PT STATED Body Mass Index 41.47 05/18/2011 10:33 AM EDT documented in this encounter Progress Notes * Julio Cesar Mitchell PA - 05/18/2011 11:14 AM EDT Case Date: 05/04/2011 Surgeon: DIEGO HADDAD MD PROCEDURES: 1. left knee diagnostic arthroscopy. 2. Arthroscopic partial medial meniscectomy. FINDINGS: 1. Beak type medial meniscal tear [...] examined with no evidence of loose bodies. HPI: Boone Gonzalez is a very pleasant 50 y.o. year-old male who presents for a 2 weeks follow-up after arthroscopic meniscal debridement. He has been doing very well and his pain is markedly improved over preoperative status. He stopped using crutches 2 days after surgery. He has had minimal swelling. ROM and stability are at baseline. Mild nausea after surgery but not residual symptoms from anaesthesia. Physical Exam: Well-appearing male in no acute distress. Alert and Oriented x 3 and answers all questions appropriately. The incisions are well healed, with no signs of infection. Calves soft and nontender without edema. No effusion to the knee. ROM from 0-120. ASSESSMENT/PLAN: 2 weeks post-op and doing well. Continue weightbearing as tolerated and working onrange of motion. We discussed the operative report. His sutures were removed. We discussed OA and activity modification. We will see him back as needed. Patient may return to normal activities as hispain and function allow. Signed: HERIBERTO VALENZUELA 05/18/2011 documented in this encounter Plan of Treatment Not on file documented as of this encounter Visit Diagnoses Diagnosis Medial meniscus tear- Primary Tear of medial cartilage or meniscus of knee, current documented in this encounter Care Teams Clinic Licensed Practical Nurse Relationship Specialty Start Date End Date Wilian Desir MD [address] [place] [address] PCP - General 02/21/11 documented as of this encounter
--- OUTSIDE RECORDS SUMMARY | 2023-11-15 15:18 | XMS_ITS | Encounter Summary ---
Author Organization [facility] Address [facility] [place] [address] Care Team Providers Care Seamer Operator Name Role Phone Wilian Desir MD Primary Care Provider Encounter Details Date Type Department Care Team (Late st Contact Info) Description 02/23/2011 Orders [place] [address] Diego Stearns MD [facility] [place] [address] Left knee pain (Primary Dx) Social History Tobacco Use Types Packs/Day Years Used Date Smoking Tobacco: Never Assessed Sex and Gender Information Value Date Recorded Sex Assigned at Not on file Gender Identity Not on file Sexual Orientation Not on file documented as of this encounter Plan of Treatment Not on file documented as of this encounter Results * XR JOINT TEAM [...] this encounter Visit Diagnoses Diagnosis Left knee pain- Primary Pain in joint, lower leg Left knee pain Pain in joint, lower leg documented in this encounter Care Teams Seamer Operator Relationship Specialty Start Date End Date Wilian Desir MD [address] [place] [address] PCP - General 02/21/11 documented as of this encounter
--- OUTSIDE RECORDS SUMMARY | 2023-11-15 15:18 | XMS_ITS | Encounter Summary ---
Author Organization [facility] Address [facility] [place] [address] Care Team Providers Care Data Migration Lead Name Role Phone Wilian Desir MD Primary Care Provider [phone] Reason for Referral * Physical Therapy (Routine) - Complete - Patient Will Schedule External Appt Specialty Diagnoses / Procedures Referred By Mariah flores Referred To Contact Physical Therapy Diagnoses Patellar instability Julio Cesar Mitchell PA [facility] [place] [address] Referral ID Status Reason Start Date Expiration Date Visits Requested Visits Authorized [id number] Complete - Patient Will Schedule External Appt Evaluate and Treat 03/16/2011 09/12/2011 1 1 Reason for Visit * Reason Comments Left Knee Pain Encounter Details Date Type Department Care Team (Late st Contact Info) Description 03/16/2011 9:55 AM EST Office [place] [address] Diego Stearns MD [facility] [place] [address] Patellar instability (Primary Dx) Discharge Disposition: Home Social History [...] Sign Reading Time Taken Comments Blood Pressure 142/88 03/16/2011 10:18 AM EST Pulse - - Temperature - - Respiratory Rate - - Oxygen Saturation - - Inhaled Oxygen Concentration - - Weight 133.1 kg (293 lb 8 oz) 03/16/2011 10:18 A M EST Height 180.3 cm (5' 11) 03/16/2011 10:18 AM EST Body Mass Index 40.93 03/16/2011 10:18 AM EST documented in this encounter Progress Notes * Julio Cesar Mitchell PA - 03/16/2011 10:59 AM EST DATE OF VISIT: 02/13/2011 CHIEF COMPLAINT: Left knee pain. HISTORY OF PRESENT ILLNESS: This is a pleasant 50-year-old male who presents today for evaluation of his left knee pain. He notes he has had intermittent symptoms for many years. Most recently, the knee has been increasingly limiting and symptomatic preventing him from hunting, which prompted evaluation. He denies any injuries to the knee, acute or chronic. Pain is primary to the anteromedial aspect of the knee. In addition to pain, there is a sense of popping and clicking from the knee. Swelling is not a common occurrence. It is not of any instability or giving way. He uses ibuprofen intermittently and also takes glucosamine. He has no other painful joints. He denies fevers, chills, or infections. No chest pain or shortness of breath. He has never had any injections or used any bracing techniques. PHYSICAL EXAMINATION: 50-year-old male ambulatory without antalgia or assistive devices. Standing alignment shows no obvious deformities. He is able to squat down without pain or apprehension. When in the supine position, his leg lengths are equal. Calves are soft and nontender without edema. Pedal pulses are intact and equal bilaterally. He is able to straight leg raise on both sides without difficulty or lag. At the left knee, there is no effusion. He has no apprehension or pain with patellar mobilization. The knee is stable to varus and valgus stress. Anterior drawer sign is negative. Flexion from 0 to 125 degrees without increased discomfort. There is some discomfort with Amos's testing, but more patellar instability is provoked. He has symmetric strength and sensation throughout the lower extremities. Deep tendon reflexes are symmetric. X-RAYS: X-rays taken today are reviewed with the patient in the office suggesting tricompartmental degenerative changes with osteophytes and minimal narrowing. No fracture or dislocation is seen. There is a suggestion of lateral tracking patella seen on the AP and Schuss views. Patellofemoral compartment shows osteophytes and calcification within the quad tendon. ASSESSMENT: 1. Left knee osteoarthritis. 2. Patellar maltracking and patellofemoral symptoms. PLAN: We discussed his x-rays as well as his symptoms. His exam was reviewed in full detail today. I think he likely has multiple issues including osteoarthritis as well as some maltracking of the patella. There may well be some meniscal pathology in this knee. We discussed treatment options for now I think a course of physical therapy, working on stabilization of the knee joint would be beneficial. We discussed the potential use of anti-inflammatories, which he declined. He also declined a brace. We will plan to see him back in approximately six weeks for further evaluation and potential for an MRI at that time to evaluate the meniscus if he continues to have mechanical symptoms and contact us as needed for further evaluation. documented in this encounter Plan of Treatment Scheduled Referrals Name Type Priority Associated Diagnoses Orde r Schedule REFERRAL TO PHYSICAL THERAPY Outpatient Referral Routine Patellar instability Ordered: 03/16/2011 documented as of this encounter Visit Diagnoses Diagnosis Patellar instability- Primary Other specified disorders of lower leg joint documented in this encounter Care Teams Data Migration Lead Relationship Specialty Start Date End Date Wilian Desir MD [address] [place] [address] PCP - General 02/21/11 documented as of this encounter
--- OUTSIDE RECORDS SUMMARY | 2023-11-15 15:18 | XMS_ITS | Clinical Summary ---
Author Organization [facility] Address [address] [place] [address] Care Team Providers Care Station Chief Name Role Phone Wilian Desir MD Primary Care Provider [phone] Social History Tobacco Use Types Packs/Day Years Used Date Smoking Tobacco: Never Assessed Sex and Gender Information Value Date Recorded Sex Assigned at Not on file Gender Identity Not on file Sexual Orientation Not on file Plan of Treatment Health Maintenance Due Date Last Done Comments Hepatitis C Screen 1960 RSV Immunization ( o r 60+ Years) (1 - 1-dose 60+ series) 2019 COVID-19 Vaccine (2022-24 season) 2022 Care Teams Station Chief Relationship Specialty Start Date End Date Wilian Desir MD [address] [place] [address] PCP - General 12/29/09
--- OUTSIDE RECORDS SUMMARY | 2023-11-15 15:18 | XMS_ITS | Encounter Summary ---
Author Organization [facility] [place] [address] Care Team Providers Care Pickle Processor Name Role Phone Wilian Desir MD Primary Care Provider [phone] Encounter Details Date Type Department Care Team (Late st Contact Info) Description 05/04/2011 8:30 AM EDT - 05/04/2011 9:58 AM EDT Surgery [place] [address] Diego Stearns MD [facility] [place] [address] ARTHROSCOPY KNEE, MENISCECTOMY SINGLE W/ SHAVING (WRVU 7.03) Social History Tobacco Use Types Packs/Day Years [...] Information: Your orthopaedic surgeon: Diego Stearns MD: [phone] If it is after 5:00PM on a weekday or a weekend and it is of an urgent nature please call [phone] and ask for the on-call orthopaedic resident. [...] 6:08 AM EDT * Op Note - Diego Stearns MD - 05/04/2011 9:22 AM EDT [facility] Operative Note Patient Name: Boone Gonzalez : [id number] MR#: [id number] Case Date: 05/04/2011 Surgeon: Surgeon(s) and Role: [...] marked the surgical site with a green [place] in the pre-op area. DESCRIPTION OF OPERATIVE [...] anesthesiology staff. The patient was transferred to [facility] in good condition. There appeared to be [...] Operative Note Patient Name: Boone Gonzalez : [id number] MR#: [id number] Case Date: 05/04/2011 Surgeon: Surgeon(s) and Role: [...] medial cartilage or meniscus of knee, current Degenerative tear of medial meniscus Tear of [...] Given 05/04/2011 10:00 AM EDT 10 mg ROpivacaine (NAROPIN) 2 mg/mL (0.2 %) injection ONCE PRN, Starting on Mon05/04/11 at 0930, Until Mon05/04/11 at 1332, Intra-Operative (Intra-Procedure), Routine Given 05/04/2011 9:30 AM EDT 40 mLs documented in this encounter Active and Recently [...] Routine documented in this encounter Care Teams Pickle Processor Relationship Specialty Start Date End Date Wilian Desir MD [address] [place] [address] PCP - General 02/21/11 documented as of this encounter
--- OUTSIDE RECORDS SUMMARY | 2023-11-15 15:18 | XMS_ITS | Clinical Summary ---
Author Organization [facility] Address [facility] [place] [address] Care Team Providers Care Radio Announcer Name Role Phone Wilian Desir MD Primary Care Provider [phone] Allergies Active Allergy Reactions Criticality Noted Date Comments Ragweed 03/16/2011 Allergic rhinitis Medications Medication Sig Dispensed Refills Start Date End Date Status GLUC SMITH/CHONDRO SMITH A/VIT C/MN (GLUCOSAMINE CHONDROITIN MAXSTR ORAL) Take by mouth. Active Active Problems Problem Noted Date Diagnosed Date Medial meniscus tear 04/27/2011 HTN (hypertension) 04/27/2011 Knee pain 03/16/2011 Social History Tobacco Use Types Packs/Day Years Used Date Smoking Tobacco: Never Smokeless Tobacco: Never Alcohol Use Standard Drinks/Week Comments Yes 0 (1 standard drink = 0.6 oz pur e alcohol) socially Sex and Gender Information Value Date Recorded Sex Assigned at Not on file Gender Identity Not on file Sexual Orientation Not on file Last Filed Vital Signs Vital Sign Reading Time Taken Comments Blood Pressure 154/92 05/18/2011 10:33 AM EDT Pulse 77 05/18/2011 10:33 AM EDT Temperature 36.8 ??C (98.2 ??F) 05/18/2011 10:33 AM E DT Respiratory Rate 18 05/04/2011 10:46 AM EDT Oxygen Saturation 93% 05/04/2011 10:46 AM EDT Inhaled Oxygen Concentration - - Weight 131.1 kg (289 lb) 05/18/2011 10:33 AM EDT Height 177.8 cm (5' 10) 05/18/2011 10:33 AM EDT PT STATED Body Mass Index 41.47 05/18/2011 10:33 AM EDT Plan of Treatment Health Maintenance Due Date Last Done Comments CT Colonography 1960 Colonoscopy 1960 Colorectal Cancer Screening 1960 FIT DNA 1960 FIT 1960 Sigmoidoscopy (10 year) with FIT yearly 1960 Sigmoidoscopy 1960 HIV screen 11/16/1977 Hepatitis C Screening 11/16/1977 Lipid Screening 11/16/1977 Tetanus/Diphtheria/Pertussis Vaccines (1 - Tdap) 11/16 Zoster vaccine (1 of 2) 11/16/2009 Advance Directive 11/16/2014 Covid-19 Vaccine (1 - season) 2023 Influenza (Flu) vaccine (1 o f 1 - Influenza standard series) 10/15/2023 Advance Directives * Full Code (Latest Code Status on File) Date Activated Date Inactivated Comments 05/04/2011 9:42 AM 05/04/2011 1:32 PM Question Answer Comments Order Status: Initial Order Does patient have decision m aking capacity? Yes, Order is based on Patients wishes. Care Teams Radio Announcer Relationship Specialty Start Date End Date Wilian Desir MD [address] [place] [id number] PCP - General 02/21/11
--- OUTSIDE RECORDS SUMMARY | 2023-11-15 15:18 | XMS_ITS | Encounter Summary ---
Author Organization [facility] Address [address] [place] [address] Care Team Providers Care Beef Cattle Farm Manager Name Role Phone Unknown, Provider Primary Care Provider [phone] Encounter Details Date Type Department Care Team (Late st Contact Info) Description 12/25/2009 Results Only [facility] [phone] Luzmaria Naqvi, DO [address] [place] [address] Social History Tobacco Use Types Packs/Day Years Used Date Smoking Tobacco: Never Assessed Sex and Gender Information Value Date Recorded Sex Assigned at Not on file Gender Identity Not on file Sexual Orientation Not on file documented as of this encounter Plan of Treatment Not on file documented as of this encounter Procedures Procedure Name Priority Date/Time Associated Diagnosis Comments SURGICAL PATHOLOGY Routine 12/25/2009 0:00 EST documented in this encounter Results * SURGICAL PATHOLOGY (12/25/2009 0:00 EST) Pathology Report: SURGICAL PATHOLOGY REPORT ? Reports generated via electronic interface contain original data; ? however they are lacking the format of the original report. ? Caution should be taken when reading/interpreti ng unformatted reports. ? Name: ? FLEURIE, ARTHUR ? Accession #: ? [id number] ? : ? 1960 (Age: 49) ??M ? Collect Date: ? 12/25/2009 ? Location: ? [facility] ? Receive Date: ? 12/25/2009 ? Provider: LUZMARIA NAQVI DO ? Copy to: BARBY KAPLAN MD ? Final Pathologic Diagnosis: ? A. ?Colon, right, polyp, biopsy: ? 1. ?Tubular adenoma. ? B. ?Colon, left, polyp, biopsy: ? 1. ?Colonic mucosa with no specific pathologic features. ??See comment. ?? C. ?Colon, sigmoid, polyp, biopsy: ? 1. ?Tubular adenoma. ? D. ?Rectum, polyp, biopsy: ?1. ?? Tubular adenoma. ? Comment: ? Deeper sections have been evaluated on (B). ??(Dr. Argueta)/ljn ? Document reviewed and electronically signed by: ? MARGARET GUARDADO MD ? Report ??Date: 12/30/2009 08:38 ? By the signature above, the attending physician certifies that he/she has ? personally conducted a gross and/or microscopic examination of the described ? specimens and rendered or confirmed the above diagnosis. ? Specimen(s) Received: ? A. ?Polyp Rt colon (#1) ? B. ? Polyp left colon (#2) ? C. ? Polyp sigmoid (#3) ? D. ? Polyp rectum (#4) ? Clinical History: ? Screening ? Gross Description: ? Received in [facility]'s fixative labelled Boone Gonzalez and 1 ??polyp ?? Rt colon are two rodriguez-pink tissue fragments measuring 0.3 x 0.2 x 0.2 cm and 0.5 x 0.2 x 0.2 cm. ??Entirely submitted in (A). ? Received in [facility] fixative labelled Boone Gonzalez and 2 ??polyp left ?? colon is a 0.2 x 0.2 x 0.1 cm pink-rodriguez tissue submitted in (B). ? [facility] Boone Gonzalez and 3 ??polyp ? sigmoid is a 0.3 x 0.3 x 0.3 cm rodriguez-pink tissue submitted in (C). ? [facility] Boone Gonzalez and 4 ??polyp ? rectum is a 0.6 x 0.4 x 0.4 cm rodriguez-pink tissue. ??Bisected and entirely ? submitted in (D). ??(Dr. Muller)/nathaliak ? End of Report ? [facility] 12/25/2009 12/25/2009 17: 03 EST Luzmaria Naqvi DO PATHOLOGY ORDERABLES [facility] [address] [place] [address] documented in this encounter Visit Diagnoses Not on filedocumented in this encounter Care Teams Beef Cattle Farm Manager Relationship Specialty Start Date End Date Unknown, Provider, PCP - General 12/25/09 12/28/09 documented as of this encounter
[2023-11-15 15:41] LABS: Hemoglobin A1C 5.8 % (<5.7)
[2023-11-15 15:45] LABS: ALT 50 U/L (16-63); AST 35 U/L (15-37); Alkaline Phosphatase 62 U/L (46-116); Anion Gap 10.9 mmol/L (3-11); BUN 20 mg/dL (7-18); Bilirubin, Total 0.84 mg/dL (0.2-1.0); CO2 25.1 mmol/L (21.0-32.0); CREATININE 1.1 mg/dL (0.70-1.30); Calcium 9.2 mg/dL (8.5-10.1); Chloride 104 mmol/L (98-107); Estimated GFR 75.43 (mL/min/1.73m2); Glucose 108 mg/dL (74-106); LDL CHOLESTEROL 93 mg/dL (<100); Potassium 3.7 mmol/L (3.5-5.1); Sodium 140 mmol/L (136-145); Total Protein 7.3 g/dL (6.4-8.2)
== END 2023-11-15 15:17 | disposition home or self-care (01) ==
LOC: NCHCN 15:16
PROVIDERS: PCP Family Medicine; Visit Provider Family Medicine
DX: Z00.00 Encounter for general adult medical examination without abnormal findings (principal)
CPT/HCPCS: 80053; 83721; 83036

== ENCOUNTER 2023-12-27 11:44 | Outpatient (CLI) | payer BC, SELFPAY ==
--- NOTE | 2023-12-27 | DI.RAD_ITS ---
Exam(s) XR CHEST 2V PA LATERAL EXAM: XR CHEST 2V PA LATERAL CLINICAL HISTORY: FEVER,R50.9 TECHNIQUE: 2D digital imaging was performed. Two views. COMPARISON: No exams were available for comparison FINDINGS: Exam is limited by under penetration. HEART: Normal size. Aorta: Not dilated. PULMONARY VASCULATURE: Normal. MEDIASTINUM: Unremarkable. LUNGS: Patchy increased densities in both lower lobes PLEURAL SPACE: No pleural effusion or pneumothorax. BONE:Unremarkable for age. SOFT TISSUES: Unremarkable. IMPRESSION: Findings suspicious for bilateral lower lobe pneumonia. DATA REPOSITORY: RADIATION DOSE DELIVERED:
--- OUTSIDE RECORDS SUMMARY | 2023-12-27 11:48 | XMS_ITS | Clinical Summary ---
Author Organization [facility] Address [facility] [place] [address] Care Team Providers Care Ladle Filler Name Role Phone Wilian Desir MD Primary Care Provider [phone] Allergies Active Allergy Reactions Criticality Noted Date [...] 2) 11/16/2009 Advance Directive 11/16/2014 Covid-19 Vaccine ( - season) 2023 Influenza (Flu) vaccine (1 o f 1 - Influenza standard series) 10/15/2023 Advance Directives * Full Code (Latest Code Status on File) Date Activated Date Inactivated Comments 05/04/2011 9:42 AM 05/04/2011 1:32 PM Question Answer Comments Order Status: Initial Order Does patient have decision m aking capacity? Yes, Order is based on Patients wishes. Care Teams Ladle Filler Relationship Specialty Start Date End Date Wilian Desir MD [address] [place] [address] PCP - General 02/21/11
--- OUTSIDE RECORDS SUMMARY | 2023-12-27 11:49 | XMS_ITS | Encounter Summary ---
Author Organization [facility] [place] [address] Care Team Providers Care Public Safety Teacher Name Role Phone Wilian Desir MD Primary Care Provider [phone] Encounter Details Date Type Department Care Team (Late st Contact Info) Description 05/04/2011 8:20 AM EDT Anesthesia Event [place] [address] Boone Reid MD [facility] [place] [address] Robinson Shannon MD [facility] [place] [address] Anesthesia Record Procedure Summary Procedure Name Responsible [...] no Does patient need to go to [facility] for testing?: no H&P w/PCP: no, Add'l [...] on filedocumented in this encounter Care Teams Public Safety Teacher Relationship Specialty Start Date End Date Wilian Desir MD [address] [place] [address] PCP - General 02/21/11 documented as of this encounter
--- OUTSIDE RECORDS SUMMARY | 2023-12-27 11:49 | XMS_ITS | Encounter Summary ---
Author Organization [facility] Address [facility] [place] [address] Care Team Providers Care Players Assistant Name Role Phone Wilian Desir MD Primary Care Provider [phone] Reason for Referral * Physical Therapy (Routine) - Complete - Patient Will Schedule External Appt Specialty Diagnoses / Procedures Referred By Mariah flores Referred To Contact Physical Therapy Diagnoses Patellar instability Julio Cesar Mitchell PA [facility] [place] [address] Referral ID Status Reason Start Date Expiration Date Visits Requested Visits Authorized [id number] Complete - Patient Will Schedule External Appt Evaluate and Treat 03/16/2011 09/12/2011 1 1 Reason for Visit * Reason Comments Left Knee Pain Encounter Details Date Type Department Care Team (Late st Contact Info) Description 03/16/2011 9:55 AM EST [place] [address] Diego Stearns MD [facility] [place] [address] Patellar instability (Primary Dx) Discharge Disposition: Home [...] joint documented in this encounter Care Teams Players Assistant Relationship Specialty Start Date End Date Wilian Desir MD [address] [place] [address] PCP - General 02/21/11 documented as of this encounter
--- OUTSIDE RECORDS SUMMARY | 2023-12-27 11:49 | XMS_ITS | Encounter Summary ---
Author Organization [facility] [place] [address] Care Team Providers Care Order Packer Or Packager Name Role Phone Wilian Desir MD Primary Care Provider [phone] Encounter Details Date Type Department Care Team (Late st Contact Info) Description 03/16/2011 9:08 AM EST - 03/16/2011 11:59 PM EST Hospital Encounter XRay at [address] [place] [address] Left knee pain Social History Tobacco Use [...] leg documented in this encounter Care Teams Order Packer Or Packager Relationship Specialty Start Date End Date Wilian Desir MD [address] [place] [address] PCP - General 02/21/11 documented as of this encounter
--- OUTSIDE RECORDS SUMMARY | 2023-12-27 11:49 | XMS_ITS | Encounter Summary ---
[facility] Address [facility] [place] [address] Care Team Providers Care Garment Supervisor Name Role Phone Wilian Desir MD Primary Care Provider Reason for Visit * Reason Comments Left Knee Pain Encounter Details Date Type Department Care Team (Latest Contact Info) Description 04/27/2011 9:10 AM EDT [place] [address] Diego Haddad MD [facility] [place] [address] Osteoarthritis of knee; Degenerative tear of medial [...] Instructions * Patient Instructions* Estuardo, Sloane Orozco, CONTENT EDITOR - 04/27/2011 9:27 AM EDT Welcome to Everfi, your secure online access to your electronic medical record at [facility]. Using Everfi you will be able to send messages to your providers, view your test results, renew prescriptions, schedule appointments, and much more. Follow these instructions to enter your personal Everfi account for the first time: 1. Start your internet browser and type [email or web address] into the address bar. 2. In the New User box on the right-hand side of the Welcome page click the link that states, ???I have an activation code.?? 3. On the Identification page, follow these steps: a) Enter your Everfi activation code: [email or web address] b) Expires: 06/11/11 09:27 AM IMPORTANT: This Activation Code will on the above mentioned date. If you do not sign up for Everfi by this date, you will need to request another activation code. c) Enter your date of , using the calendar tool provided. d) Enter your Zip code. e) Select ???submit?? to go to the next page. 4. On the Create Account page, follow these steps: a) Create a Everfi username. This can???t be changed, so choose [...] record. If you have any questions about Everfi or your Access Code, please call for [place], for [place] or for [place]. If you need technical support, please e-mail [email or web address]. Remember, myD-H is NOT for urgent needs! Always dial 911 for medical emergencies. documented in this encounter Progress Notes * Diego Haddad MD - 04/27/2011 10:32 AM EDTAddended by: DIEGO HADDAD on: 04/27/2011 Modules accepted: Orders, SmartSet * Maura Sun PA - 04/27/2011 10:15 AM EDT PATIENT NAME: Boone Gonzalez AGE: 50 y.o. MR#: [id number] DATE OF VISIT: 04/27/2011 DATE OF INJURY/ONSET: [...] encounter Miscellaneous Notes * Miscellaneous - Vicente, Lining Presser - 05/05/2011 2:54 PM EDT documented in [...] current documented in this encounter Care Teams Garment Supervisor Relationship Specialty Start Date End Date Wilian Desir MD [address] [place] [address] PCP - General 02/21/11 documented as of this encounter
--- OUTSIDE RECORDS SUMMARY | 2023-12-27 11:49 | XMS_ITS | Encounter Summary ---
Author Organization [facility] [place] [address] Care Team Providers Care Quantitative Manager Name Role Phone Wilian Desir MD Primary Care Provider Encounter Details Date Type Department Care Team (Latest Contact Info) Description 05/04/2011 6:45 AM EDT - 05/04/2011 11:15 AM EDT Hospital Encounter [place] [address] Diego Stearns MD [facility] DR [place] [address] Degenerative tear of medial meniscus Discharge Disposition: [...] Information: Your orthopaedic surgeon: Diego Stearns MD: [phone] If it is after 5:00PM on a weekday or a weekend and it is of an urgent nature please call [phone] and ask for the on-call orthopaedic resident. [...] Stearns MD - 05/04/2011 9:22 AM EDT [facility] Operative Note Patient Name: Boone Gonzalez : [id number] MR#: [id number] Case Date: 05/04/2011 Surgeon: Surgeon(s) and Role: [...] marked the surgical site with a green [place]osh[place] in the pre-op area. DESCRIPTION OF OPERATIVE [...] anesthesiology staff. The patient was transferred to [facility] in good condition. There appeared to [...] EDT Brief Operative Note Patient Name: Boone Gonzaelz : [id number] MR#: [id number] Case Date: 05/04/2011 Surgeon: Surgeon(s) and Role: [...] Routine documented in this encounter Care Teams Quantitative Manager Relationship Specialty Start Date End Date Wilian Desir MD [address] [place] [address] PCP - General 02/21/11 documented as of this encounter
--- OUTSIDE RECORDS SUMMARY | 2023-12-27 11:49 | XMS_ITS | Encounter Summary ---
[facility] [place] [address] Care Team Providers Care Ground Crew Linesman Name Role Phone Wilian Desir MD Primary Care Provider Encounter Details Date Type Department Care Team (Late st Contact Info) Description 05/04/2011 8:30 AM EDT - 05/04/2011 9:58 AM EDT Surgery [place] [address] Diego Stearns MD [facility] [place] [address] ARTHROSCOPY KNEE, MENISCECTOMY SINGLE W/ SHAVING (WRVU [...] Information: Your orthopaedic surgeon: Diego Stearns MD: [phone] If it is after 5:00PM on a weekday or a weekend and it is of an urgent nature please call [phone] and ask for the on-call orthopaedic resident. [...] Stearns MD - 05/04/2011 9:22 AM EDT [facility] Operative Note Patient Name: Boone Gonzalez : [id number] MR#: [id number] Case Date: 05/04/2011 Surgeon: Surgeon(s) and Role: [...] marked the surgical site with a green [place] in the pre-op area. DESCRIPTION OF OPERATIVE [...] This was then over wrapped with an Rlaf bandage. The tourniquet was then deflated, and the patient awakened by the anesthesiology staff. The patient was transferred to [facility] in good condition. There appeared to be [...] Operative Note Patient Name: Boone Gonzalez : [id number] MR#: [id number] Case Date: 05/04/2011 Surgeon: Surgeon(s) and Role: [...] Routine documented in this encounter Care Teams Ground Crew Linesman Relationship Specialty Start Date End Date Wilian Desir MD [address] [place] [address] PCP - General 02/21/11 documented as of this encounter
--- OUTSIDE RECORDS SUMMARY | 2023-12-27 11:50 | XMS_ITS | Encounter Summary ---
Author Organization [facility] Address [facility] [place] [address] Care Team Providers Care Sericulturist Name Role Phone Wilian Desir MD Primary Care Provider [phone] Encounter Details Date Type Department Care Team (Late st Contact Info) Description 02/23/2011 Orders [place] [address] Diego Stearns MD [facility] [place] [address] Left knee pain (Primary Dx) Social History [...] leg documented in this encounter Care Teams Sericulturist Relationship Specialty Start Date End Date Wilian Desir MD [address] [place] [address] PCP - General 02/21/11 documented as of this encounter
--- OUTSIDE RECORDS SUMMARY | 2023-12-27 11:50 | XMS_ITS | Clinical Summary ---
Author Organization [facility] Address [address] [place] [address] Care Team Providers Care Counter Stitcher Name Role Phone Wilian Desir MD Primary Care Provider [phone] Social History Tobacco Use Types Packs/Day Years Used Date Smoking Tobacco: Never Assessed Sex and Gender Information Value Date Recorded Sex Assigned at Not on file Legal Sex Male 18:50 EST Gender Identity Not on file Sexual Orientation Not on file Plan of Treatment Health Maintenance Due Date Last Done Comments Hepatitis C Screen 1960 COVID-19 Vaccine (2023-25 season) 2023 RSV Immunization ( o r 60+ Years) (1 - 1-dose 75+ series) 11/16/2034 Care Teams Counter Stitcher Relationship Specialty Start Date End Date Wilian Desir MD [address] [place] [id number] PCP - General 12/29/09
--- OUTSIDE RECORDS SUMMARY | 2023-12-27 11:50 | XMS_ITS | Referral Summary ---
Author Organization [facility] Address [address] [place] [address] Care Team Providers Care Bridge Gang Worker Name Role Phone Wilian Desir MD Primary Care Provider [phone] Social History Tobacco Use Types Packs/Day Years Used Date Smoking Tobacco: Never Assessed Sex and Gender Information Value Date Recorded Sex Assigned at Not on file Legal Sex Male 18:50 EST Gender Identity Not on file Sexual Orientation Not on file Plan of Treatment Not on file Care Teams Bridge Gang Worker Relationship Specialty Start Date End Date Wilian Desir MD [address] [place] [address] PCP - General 12/29/09
--- OUTSIDE RECORDS SUMMARY | 2023-12-27 11:50 | XMS_ITS | Encounter Summary ---
Author Organization [facility] [place] [address] Care Team Providers Care Room Service Clerk Name Role Phone Wilian Desir MD Primary Care Provider Encounter Details Date Type Department Care Team (Late st Contact Info) Description 03/12/2011 Orders [place] [address] Diego Stearns MD [facility] [address] [place] [address] Social History Tobacco Use Types Packs/Day Years Used Date Smoking Tobacco: Never Assessed Sex and Gender Information Value Date Recorded Sex Assigned at Not on file Gender Identity Not on file Sexual Orientation Not on file documented as of this encounter Plan of Treatment Not on file documented as of this encounter Visit Diagnoses Not on filedocumented in this encounter Care Teams Room Service Clerk Relationship Specialty Start Date End Date Wilian Desir MD [address] [place] [address] PCP - General 02/21/11 documented as of this encounter
--- OUTSIDE RECORDS SUMMARY | 2023-12-27 11:50 | XMS_ITS | Encounter Summary ---
Author Organization [facility] Address [address] [place] [address] Care Team Providers Care Outdoor Recreation Specialist Name Role Phone Unknown, Provider Primary Care Provider Unava ilable Encounter Details Date Type Department Care Team (Late st Contact Info) Description 12/25/2009 Results Only [facility] [phone] Luzmaria Naqvi, DO [address] [place] [address] Social History Tobacco Use Types [...] reading/interpreti ng unformatted reports. ? Name: ? FLEELENAE, ARTHUR ? Accession #: ? [id number] ? : ? 1960 (Age: 49) ??M [...] Screening ? Gross Description: ? Received in Mari's fixative labelled Boone Gonzalez and 1 ??polyp ?? Rt colon are two rodriguez-pink tissue fragments measuring 0.3 x 0.2 x 0.2 cm and 0.5 x 0.2 x 0.2 cm. ??Entirely submitted in (A). ? Received in Mari's fixative labelled Boone Gonzalez and 2 ??polyp left ?? colon is a 0.2 x 0.2 x 0.1 cm pink-rodriguez tissue submitted in (B). ? Received in Hollande's fixative labelled Boone Gonzalez and 3 ??polyp ? sigmoid is a 0.3 x 0.3 x 0.3 cm rodriguez-pink tissue submitted in (C). ? Received in WANdiscoe's fixative labelled Boone Gonzalez and 4 ??polyp ? rectum is a 0.6 x 0.4 x 0.4 cm rodriguez-pink tissue. ??Bisected and entirely ? submitted in (D). ??(Dr. Muller)/nathaliak ? End of Report ? [facility] 12/25/2009 12/25/2009 17: 03 EST us Luzmaria Naqvi DO PATHOLOGY ORDERABLES Final Res ult [facility] [address] [place] [address] documented in this encounter Visit Diagnoses Not on filedocumented in this encounter Care Teams Outdoor Recreation Specialist Relationship Specialty Start Date End Date Unknown, Provider, PCP - General 12/25/09 12/28/09 documented as of this encounter
== END 2023-12-27 12:04 ==
LOC: DI 11:46
PROVIDERS: PCP Family Medicine; Visit Provider Physician Assistant Medical
DX: R50.9 Fever, unspecified (principal)
CPT/HCPCS: 71046

== ENCOUNTER 2024-11-20 09:41 | Outpatient (REF) | payer BC, SELFPAY ==
[2024-11-20 14:38] LABS: HCT 43.5 % (40.0-50.0); HGB 14.7 g/dL (13.5-17.5); MCH 30.5 pg (27.0-33.0); MCHC 33.8 % (32.0-36.0); MCV 90 fL (80-95); MPV 10.1 fL (8.0-11.0); Platelet Count 228 10^3/uL (130-400); RBC 4.82 10^6/uL (4.36-5.78); RDW 12.9 % (11.8-14.1); RDW-SD 42.5 fL; WBC 6.27 10^3/uL (4.4-10.8)
[2024-11-20 14:59] LABS: ALT 55 U/L (16-63); AST 49 U/L (15-37); Albumin 3.9 g/dL (3.4-5.0); Alkaline Phosphatase 57 U/L (46-116); Anion Gap 13.4 mmol/L (3-11); BUN 22 mg/dL (7-18); Bilirubin, Total 0.8 mg/dL (0.2-1.0); CO2 25.6 mmol/L (21.0-32.0); Calcium 9.1 mg/dL (8.5-10.1); Calculated LDL 96 mg/dL (<100); Chloride 105 mmol/L (98-107); Cholesterol 166 mg/dL (<200); Estimated GFR 83.52 (mL/min/1.73m2); Glucose 122 mg/dL (74-106); HDL Cholesterol 41 mg/dL (>or=40); Potassium 3.9 mmol/L (3.5-5.1); Sodium 144 mmol/L (136-145); Total Protein 7.1 g/dL (6.4-8.2); Triglyceride 148 mg/dL (<150)
== END 2024-11-20 09:42 | disposition home or self-care (01) ==
LOC: NCHCN 09:41
PROVIDERS: PCP Family Medicine; Visit Provider Family Medicine
DX: I10 Essential (primary) hypertension (principal); E78.5 Hyperlipidemia, unspecified
CPT/HCPCS: 80053; 80061; 85027

== ENCOUNTER 2025-01-22 06:48 | Day surgery (SDC) | payer BC, SELFPAY ==
--- NOTE | 2025-01-21 17:20 | ANES.PREOP_ITS ---
General Info Date of Service Date Performed: 01/22/25 Height: 5 ft 10 in Weight: 120.202 kg Body Mass Index (BMI): 38.0 Surgical Procedure: Operation Date: 01/22/25 08:20 Proposed Procedure Side Surgeon p Colonoscopy Rosa Bowman MD Meds Allergies and Home Medications Allergies Allergy/AdvReac Type Severity Reaction Status Date / Time lisinopril AdvReac cough Verified 01/22/25 07:06 Home Medication ?Medication ?Instructions ?Recorded losartan 50 mg-hydrochlorothiazide 1 tab-cap PO DAILY 04/28/14 12.5 mg tablet rivaroxaban 20 mg tablet (Xarelto) 20 mg PO DAILY 12/14 03/09 simvastatin 20 mg tablet 20 mg PO QHS 12/24/24 bisacodyl 5 mg tablet,delayed 5 mg PO ONCE Colonoscopy Bowel 01/08/25 release Prep #4 tabs polyethylene glycol 3350 17 238 g PO ONCE #238 grams 1 03/10/24 gram/dose oral powder Current Visit Medications: Current Medications Generic Name Dose Route Start Last Admin Trade Name Freq PRN Reason Stop Dose Admin Ringer's Solution 1,000 mls @ 80 mls/hr 01/22/25 06:00 IV 01/22/25 23:59 INFUSION JEN Sodium Chloride 0 ml 01/22/25 06:00 Normal Saline Flush 10 Ml Syr IV 01/22/25 23:59 PRN PRN Sodium Chloride 0 ml 01/22/25 06:00 Normal Saline 10 Ml Vial IJ 01/22/25 23:59 DIRECTED PRN Sterile Water 0 ml 01/22/25 06:00 Water,Injection,Sterile 10 Ml Vial IJ 01/22/25 23:59 DIRECTED PRN PFSH Active Problems Active Problems: Problem Status Onset Code Erectile dysfunction Acute N52.9 Diastasis recti Acute M62.08 Insomnia Acute G47.00 Eczema Acute L30.9 Benign neoplasm of colon Acute D12.6 Obesity Chronic E66.9 Hyperlipidemia Acute E78.5 Prediabetes Acute R73.03 Paroxysmal atrial fibrillation Acute I48.0 Essential hypertension Acute I10 Surgical History Surgical History (Updated 01/21/25 @ 10:44 by Shama Rowe) Hx of colonoscopy Tobacco Smoking/Tobacco Use Status: Never Substance Use Substance use: Never Imaging and Studies Imaging and Studies Study information below may be from another EMR and interpreted by another provider. Please see original notes in EMR for more complete details. Echocardiogram Summary: 12/08/22 Conclusion Normal left ventricular wall thickness and chamber size. Ejection fraction is 55 to 60%. Wall motion is normal Normal right ventricular size and systolic function Both atria are normal in size Aortic valve is mildly sclerotic and trileaflet without stenosis or regurgitation There is no additional structural or hemodynamically significant valvular disease Estimated right ventricular systolic pressure is 34 mmHg Patient was in sinus rhythm throughout the study Anesthesia Assessment and Plan Anesthesia History Personal History: No History of Anesthesia Complications Family History: No Family History of Anesthesia Complications Exercise Tolerance Exercise Tolerance: Metabolic Equivalents>4 Pertinent Negatives Pertinent Negatives: No Symptoms of GERD, No Major Cardiovascular Symptoms or Complaints, No Major Pulmonary Symptoms or Complaints and No History of CVA/TIA Cardiac & Pulmonary Exam Cardiac Exam: Normal S1/S2 Heart Sounds Pulmonary Exam: Clear Bilateral Breath Sounds Implantable Cardiac Device Does patient have a Pacemaker or an ICD?: No Airway Exam Known Difficult Airway: No Mallampati Class: 2 Mouth Opening: Normal (> 3cm) Thyromental Distance: Greater than 3 cm Neck Range of Motion: Full ROM Neck Circumference: Normal Teeth Condition: Normal Dentition ASA Classification ASA Score: ASA 2 Emergency Case?: No NPO Status NPO Status: NPO Clears >2 hours, Solids >8 hours Anesthesia Plan Resuscitation Status: Full Code Anesthesia Technique: General Anesthesia Airway Planned: Natural Airway Monitors Used: Standard Monitors Preoperative Comments:: 64 yo for colo. Sig PMHx: HTN (losartan, HCTZ), PAfib (Xarelto) PreDM. Never smoker. Previous Anes: - colo, fent/midaz, prop, no issues.
[2025-01-22 07:08] VITALS: BP 151/106; PULSE 106; RESP 18; TEMP 36.2; O2SAT 99
[2025-01-22 07:21] VITALS: BP 150/85; PULSE 70
[2025-01-22] MEDS: Lactated Ringers 1,000 ML 80 ML IV (07:29)
[2025-01-22 08:01] VITALS: BMI 38.0
--- NOTE | 2025-01-22 08:20 | BOWEL_PTH ---
PATIENT: Boone Gonzalez LOC: [facility] U#:[id number] AGE/SX: 64/M ROOM: RE01/22/[address]: Rosa Bowman : 1960 BED: DIS: 01/22/2025 SPEC #: [id number] RECD: 01/22/25 12:55 STATUS: ADOLFO REQ #: [id number] PRABHJOT: 01/22/25 08:[address]: Rosa Bowman DEPT: Surgical Specimen RECD BY: Arabella Martin ENTERED: 01/22/25 12:56 SP TYPE: Bowel OTHR DR: Jose Love Tissues: 1 - BIOPSY BOWEL Procedures: GROSS AND MICRO LEVEL 4 Comments: [id number]
--- NOTE | 2025-01-22 08:30 | RT.EKG_ITS ---
APPROVED REPORT Exam: Resting ECG Reason for Exam: a-fib Patient Location: O HR:100 bpm ECG Measurements Heart Rate 100 AXIS FL [id number] P [id number] QRSd 94 QRS 27 QT 379 T 13 QTc 490 Conclusion Atrial fibrillation...V-rate 75- 99, irreg A-activity Low voltage, precordial leads...precordial leads <1.0mV
--- NOTE | 2025-01-22 08:32 | W.PM.DSUDISC ---
Date of service: 01/22/25 Discharge Plan Disposition Patient Disposition: Home Condition: Good Discharge Details Reason For Visit: Screening colonoscopy Attending Provider: Rosa Bowman Primary Care Provider: Jose Love Recommendations for Follow Up Recommended tests to be ordered by follow up provider: Follow up pathology Home Meds and New Rx's Prescriptions: Continued losartan-hydrochlorothiazide 1 EACH tablet 1 tab-cap PO DAILY simvastatin 20 mg tablet 20 mg PO QHS Xarelto 20 mg tablet 20 mg PO DAILY Rx Instructions: must administer with evening meal Discontinued bisacodyl 5 mg tablet,delayed release (DR/EC) 5 mg PO ONCE Qty: 4 0RF Rx Instructions: Per Colonoscopy bowel prep instructions polyethylene glycol 3350 17 gram/dose powder 238 g PO ONCE Qty: 238 0RF Rx Instructions: For Colonoscopy bowel prep, as directed by office Discharge Instructions Instructions: Diverticulosis Additional Instructions: Your colonoscopy went well today. You did have evidence of diverticulosis or outpouchings of the colon. He also had 1 polyp which was removed. This polyp will be sent to pathology. We will contact you regarding the pathology results and recommendations for when to have a repeat colonoscopy. If you have any questions or concerns please contact the general surgery office. Stand Alone Forms: Anesthesia Discharge Inst., Brennon Robb ([facility]), Portal Information Activity:: Activity as Tolerated Diet:: As Tolerated Discharge Orders Discharge Orders: Discharge Order (Routine); Ordered 01/22/25 Ordered By: Rosa Bowman
[2025-01-22 08:35] VITALS: BP 102/72; PULSE 64; RESP 18; TEMP 36.1; O2SAT 94
--- NOTE | 2025-01-22 08:35 | W.COLOREPORT ---
Date of service: 01/22/25 Time of Service: 08:35 Colonoscopy Report Date of procedure: 01/22/25 Pre-op diagnosis general: Screening colonoscopy Post-op diagnosis procedure note: other (Diverticulosis, colon polyp ) Procedure: Colonoscopy with polypectomy Surgeon: Rosa Bowman Anesthesia Type: General:No Airway Estimated blood loss (mL): 1 Pathology: other (Colon polyp at 85cm ) Complications: None Disposition: PACU Indications: Patient is a 64-year-old male who presents for a screening colonoscopy. His most recent colonoscopy was 10 years ago and had evidence of diverticulosis. He denies any changes in his bowel habits. Prep: Miralax/Dulcolax Procedure Start Time: 08:07 Procedure End Time: 08:28 Retraction Time: 15 Findings: Small colon polyp at 85 cm removed with cold forceps. Evidence of diverticulosis of the rectosigmoid colon. Procedure Description: The patient was brought to the endoscopy suite and placed in the left lateral decubitus position. After induction of IV sedation, a digital rectal exam was performed.. Digital exam was normal. The colonoscope was then passed to the cecum without difficulty. Cecal intubation was confirmed by the identification of the appendiceal orifice and the ileocecal valve. Upon withdrawing the colonoscope, all mucosal surfaces were inspected. The prep was noted to be adequate. At 85cm there was a small polyp, which was removed using cold forceps in its entirety. Specimen was retrieved for pathological analysis. There was evidence of severe rectosigmoid diverticulosis. Retroflexion in the rectum was unremarkable. The patient tolerated the procedure well with no complications. Postoperatively, the patient was transferred to the recovery room in stable condition. [place] Bowel Prep [place] Bowel Prep Right Colon: 3 Left Colon: 2 Transverse Colon: 3 Total Score: 8
--- NOTE | 2025-01-22 08:48 | W.ANESPOSTOP ---
Postoperative Evaluation Date, Time and Location Date Performed: 01/22/25 Time Performed: 08:48 Patient Location: Day Surgery Unit Vital Signs Most Recent Imported Vital Signs: Most Recent Vital Signs Temp Pulse Resp BP Pulse Ox 36.2 C L 70 18 150/85 H 99 01/22/25 07:08 01/22/25 07:21 01/22/25 07:08 01/22/25 07:21 01/22/25 07:08 Pain Score Most Recent Pain Score: Most Recent Pain Score Pain Level 0 01/22/25 07:08 Assessment Mental Status: Awake (Alert & Oriented to Patient Baseline) Airway and Respiratory Function: Patent airway with normal (patient baseline) respiratory exam Cardiovascular Function: Hemodynamically Stable Hydration Status: Adequately Hydrated Nausea & Vomiting: No Nausea or Vomiting Pain: Pt. Denies Any Pain Peripheral Nerve Block: Patient did not receive a nerve block Teaching Patient Teaching: Advised to seek followup for the following concerns (See explanation) Concerns: New Onset Atrial Fibrillation (known paroxysmal afib, pt was in RVR intraoperatively, EKG and labs done)
[2025-01-22 09:01] VITALS: BP 103/83; PULSE 97; RESP 18; TEMP 36.5; O2SAT 97
[2025-01-22 09:24] LABS: Magnesium 2.0 mg/dL (1.6-2.6)
[2025-01-22 09:28] LABS: ALT 33 U/L (10-49); AST 33 U/L (<34); Albumin 4.0 g/dL (3.2-5.0); Alkaline Phosphatase 59 U/L (46-116); Anion Gap 9.9 mmol/L (3-11); BUN 14 mg/dL (9-23); Bilirubin, Total 0.9 mg/dL (0.2-1.2); CO2 25.1 mmol/L (20.0-31.0); Calcium 8.6 mg/dL (8.3-10.6); Chloride 107 mmol/L (98-107); Glucose 116 mg/dL (74-106); Potassium 3.8 mmol/L (3.5-5.1); Sodium 142 mmol/L (136-145); Total Protein 6.5 g/dL (5.7-8.2)
--- NOTE | 2025-01-22 09:38 | W.ANESPOSTOP ---
Postoperative Evaluation Date, Time and Location Date Performed: 01/22/25 Time Performed: 09:38 Patient Location: Day Surgery Unit Vital Signs Most Recent Imported Vital Signs: Most Recent Vital Signs Temp Pulse Resp BP Pulse Ox 36.5 C 97 H 18 103/83 97 01/22/25 09:01 01/22/25 09:01 01/22/25 09:01 01/22/25 09:01 01/22/25 09:01 Most Recent Vital Signs Temp Pulse Resp BP Pulse Ox 36.2 C L 70 18 150/85 H 99 01/22/25 07:08 01/22/25 07:21 01/22/25 07:08 01/22/25 07:21 01/22/25 07:08 Pain Score Most Recent Pain Score: Most Recent Pain Score Pain Level 0 01/22/25 09:01 Assessment Mental Status: Awake (Alert & Oriented to Patient Baseline) Airway and Respiratory Function: Patent airway with normal (patient baseline) respiratory exam Cardiovascular Function: Hemodynamically Stable Hydration Status: Adequately Hydrated Nausea & Vomiting: No Nausea or Vomiting Pain: Pt. Denies Any Pain Peripheral Nerve Block: Patient did not receive a nerve block Postoperative Comments:: During procedure was noted to be at 140-150 on ECG with no symptoms of rapid afib. Given that he had prepped for the procedure, it was continued. On return to [facility] an ECG and labs ordered. A call was placed to his PCP office. They wanted him to go to the ED for rapid afib. He is currently rate controlled (HR ~100 on 12 lead), labs are unremarkable. Discussed the opinion of his PCP, but given his current HR and that he feels ok, discussed that he is welcome to return home with the instructions to return to the ED if he is having any symptoms of rapid afib (chest pain, shortness of breath, dizziness, or anything else that feels offf). He was encouraged to immediately follow up with his PCP about being placed on rate control for his afib. He and his express understanding. They were encoraged to reach out with any further questions that they may have.
== END 2025-01-22 09:46 | disposition home or self-care (01) ==
PROVIDERS: Nurse Anesthetist, Certified Registered; PCP Family Medicine; Visit Provider Student in an Organized Health Care Education/Training Program
PROC: 0DJD8ZZ Inspection of Lower Intestinal Tract, Via Natural or Artificial Opening Endoscopic (ICD-10-PCS; CPT 45378; principal; 2025-01-22 08:15)
DX: Z12.11 Encounter for screening for malignant neoplasm of colon (principal); K63.5 Polyp of colon; K57.30 Diverticulosis of large intestine without perforation or abscess without bleeding; I10 Essential (primary) hypertension
CPT/HCPCS: 45380; 36415; 80053; 88305; 83735; 93005; 93010; J1805; J2704